=== PATIENT | male | born 1955 | race Caucasian/White ===

== ENCOUNTER 2023-06-11 17:17 | Emergency (ER) | payer OTHER, SELFPAY ==
[2023-06-11 17:22] VITALS: BP 154/84; BMI 24.4
[2023-06-11 17:49] LABS: % Basophils 0.3 % (0-2); % Immature Granulocytes 0.6 % (0-0.5); % Lymphocytes 7.9 % (20.5-51.1); % Monocytes 4.1 % (1.7-9.3); % Neutrophils 87.1 % (42.2-75.2); Absolute Immature Granulocytes 0.1 10^3/uL (0-0.05); Absolute Lymphocytes 1.2 10^3/uL (1.2-3.4); Absolute Monocytes 0.6 10^3/uL (0.1-0.6); Absolute Neutrophils 13.4 10^3/uL (1.4-6.5); Hematocrit 36.6 % (39.0-52.0); Hemoglobin 13.4 g/dL (13.0-18.0); Mean Corp Hgb Conc. 36.6 g/dL (33.0-37.0); Mean Corpuscular Hgb 30.9 pg (27.0-31.0); Mean Corpuscular Volume 84.5 fL (80.0-94.0); Nucleated Red Blood Cells % 0 % (-); Platelet Count 174 10^3/uL (130-400); Red Blood Cell Count 4.33 10^6/uL (4.70-6.10); Red Cell Dist. Width 12.1 % (11.5-14.5); White Blood Cell Count 15.4 10^3/uL (4.8-10.8)
[2023-06-11 18:05] LABS: COVID-19 Antigen Negative (Negative)
[2023-06-11 18:11] LABS: ALT (SGPT) 22 U/L (0-50); AST (SGOT) 25 U/L (17-59); Alkaline Phosphatase 98 U/L (38-126); Blood Urea Nitrogen 15 mg/dl (9-20); Calcium 9.2 mg/dl (8.4-10.2); Carbon Dioxide 24 mmol/L (22-30); Chloride 99 mmol/L (98-107); Estimated Creatinine Clearance 77 ml/min; Glucose 140 mg/dl (70-99); Lactic Acid 0.9 mmol/L (0.7-2.0); Potassium 4.1 mmol/L (3.5-5.1); Sodium 129 mmol/L (135-145); Total Bilirubin 1.5 mg/dl (0.2-1.3); Total Protein 6.7 g/dl (6.3-8.2); eGFR > 60.00
[2023-06-11 19:00] VITALS: BP 144/64
--- NOTE | 2023-06-11 19:37 | ED.GENMED ---
History of Present Illness
General
Chief Complaint: Fever
Source: patient and spouse
Exam Limitations: none
Time Seen by Provider: 06/11/23 19:00
Travel History
Have you had any contact with someone who has COVID-19?: No
Do you have any symptoms of coronavirus? Fever > 100 degrees, chills, cough, shortness of breath, sore throat, loss of taste or smell, muscle aches, or headache?: No
History of Present Illness
History of Present Illness:
Patient is a 67-year-old male who presents to the ER for evaluation. Patient reports he was burning poison aminata and cutting poison aminata down on Tuesday and then started with redness to his nose. Since then the redness has spread to his entire
face. He complains of fatigue achy and not feeling well. He also has had a cough for over 5 days and a fever for the past 2 days. He is little nauseous.
He denies any lip or tongue swelling denies any difficulty breathing.
Review of Systems
Review of Systems
Allergies reviewed?: Yes
Other source history: family
All Other Systems: ROS reviewed and negative except as documented in HPI and ROS
Constitutional: Reports fever, fatigue and chills
EENT: Reports no symptoms and other (Patient reports redness to face but no lip or tongue swelling)
Respiratory: Reports cough; Denies trouble breathing
Cardiac: Reports no symptoms
ABD/GI: Reports no symptoms
Musculoskeletal: Reports no symptoms
Skin: Reports other (redness to face )
Neurological: Reports no symptoms
Hematologic/Lymphatic: Reports no symptoms
Psychiatric: Reports no symptoms
Phy Exam
General Physical Exam
General Presentation: no apparent distress
General age: appears stated age
General Skin: warm and dry
General Habitus: normal
General Mental: alert
General Hydration: appears well hydrated
Cardiovascular Exam
Cardiovascular Exam: regular rate/rhythm, no murmur and normal peripheral pulses
Pulmonary Exam
Pulmonary Exam: lungs clear and no respiratory distress
Neurological Exam
Neurological Exam: alert and oriented x3
Musculoskeletal Exam
Musculoskeletal Exam: full ROM
Skin Exam
Skin Exam: normal color, warm/dry and other (Face is red mid swelling to eyelids )
Psychiatric Exam
Psychiatric Exam: normal mood/affect
Course
Orders/Labs/Results
Orders:
Orders
06/11/23 17:28
Electrocardiogram (*1) Urgent
Reason for Study: Other
Other Reason for Exam: Possible Sepsis
EKG- Treatment ONCE
06/11/23 17:36
Complete Blood Count/With Diff Urgent
Comprehensive Metabolic Panel Urgent
Lactic Acid Q4H
Comment: ON ICE, CANCEL 2ND ORDER IF FIRST LACTIC ACID LEVEL <2
Blood Culture Stat
YAN Source: Blood/Venous
Specimen Description:
06/11/23 17:37
COVID-19 Antigen Urgent
Source: Nasal Swab
Influenza A+B Rapid Molecular Urgent
YAN Source: Nasal Swab
Specimen Description:
06/11/23 19:37
Chest [CR Chest - 2 Views ] Urgent
Comment:
Reason For Exam: fever cough
06/11/23 19:39
Acetaminophen [Tylenol] 650 mg PO NOW STA
Dexamethasone Sod Phosphate [Decadron] 10 mg IV NOW STA
06/11/23 21:34
Azithromycin [Zithromax] 500 mg PO NOW STA
Abnormal Lab Results
06/11/23
17:36
WBC 15.4 H 10^3/uL
(4.8-10.8)
RBC 4.33 L 10^6/uL
(4.70-6.10)
Hct 36.6 L %
(39.0-52.0)
Abs Immat Gran (auto) 0.1 H 10^3/uL
(0-0.05)
Absolute Neuts (auto) 13.4 H 10^3/uL
(1.4-6.5)
Immature Gran % 0.6 H %
(0-0.5)
Neutrophils % 87.1 H %
(42.2-75.2)
Lymphocytes % 7.9 L %
(20.5-51.1)
Sodium 129 L mmol/L
(135-145)
Glucose 140 H mg/dl
(70-99)
Total Bilirubin 1.5 H mg/dl
(0.2-1.3)
06/11/23 17:36
06/11/23 17:36
Vital Signs
Initial and Last Documented VS:
Initial Vital Signs
Temp Pulse Resp BP Pulse Ox
100.7 F H 105 22 154/84 96
06/11/23 17:22 06/11/23 17:22 06/11/23 17:22 06/11/23 17:22 06/11/23 17:22
Last Documented Vital Signs
Temp Pulse Resp BP Pulse Ox
100.7 F H 105 22 142/69 96
06/11/23 17:22 06/11/23 17:22 06/11/23 17:22 06/11/23 20:00 06/11/23 19:20
MDM/Problems Addressed
Differential Diagnosis Includes:
Not limited to poison aminata exposure, pneumonitis, bronchitis, pneumonia, influenza, COVID
MDM/Problems Addressed:
67-year-old male was burning poison aminata on Tuesday and since then has had redness to his face cough mild low-grade fever. pt is non toxic not hypoxic patient presents with redness to his face minimal swelling around the eyelids. Likely obviously
from exposure to poison aminata. Patient has no lip and tongue swelling , no erythema/rash to rest of his body.
patient also has a mild cough low-grade temperature. Lungs are clear no acute distress not short of breath. no acute findings on xray however with elevated wbc of 15.4 cough and fever will start on Zithromax . Patient is nontoxic his lactic is
normal. Possible pneumonitis related to burning poison aminata
Patient has had significant decrease in redness to his face from Decadron. d/c with ED physician
will send patient home on 4 days more of prednisone as well.
Patient's sodium is mildly low at 129 will have patient follow-up with family doctor for this.
*Radiology
Radiology exam reviewed: preliminary read by ED provider
*Pulse Oximetry
Patient hypoxic: no
*EKG
Interpreted by ED Provider?: Yes
Interpretation: normal
Comparison EKG: no comparison EKG present
Heart Rate: 99
Rate: normal
Rhythm: sinus
Ischemia: no ischemia
*Critical Care Note
Total Time (30-74mins, 75-104mins- exclusive of procedures): Not Applicable
ED Attending Note
-
Portions of this chart may have been created with voice recognition software.� Occasional wrong word or��sound alike� substitutions may have occurred due to the inherent limitations of voice recognition software.
Discharge Plan
Departure
Patient Disposition: Home (Routine Discharge)
Date of Disposition: 06/11/23
Time of Disposition: 21:39
Patient with high blood pressure during this ER visit?: Yes
Condition: Fair
Covid-19: Negative COVID-19
Discharge Problem:
Cough, exposure to poison aminata
Instructions: Poison aminata, Cough, Adult (DC), BLOOD PRESSURE
Prescriptions:
New
prednisone 50 mg tablet
50 mg PO DAILY Qty: 5 0RF
azithromycin [Zithromax] 250 mg tablet
250 mg PO DAILY Qty: 4 0RF
Referrals:
Natalia Rossi PA-C [Family Provider] -
Activity Restrictions/Additional Instructions:
As discussed you were treated with steroids here in the ER and you were given a prescription for take home as well. Also a prescription for Zithromax(antibiotic) to take daily for the next 4 days. Follow-up with family doctor in the next several
days for reevaluation of your symptoms. Return if any worsening of symptoms including worsening redness difficulty breathing cough fever chills. Your sodium was also low here in the ER(129) and should be checked by your family doctor in the next
week.
Interventions
Interventions:
*Risk Screen - Suicide Last Done: 06/11/23 17:22
*General Assessment Last Done: 06/11/23 19:07
*Neglect/Abuse Screening Last Done: 06/11/23 17:22
ED- Fall Risk Assessment Last Done: 06/11/23 19:07
*ED COVID-19 Vaccine History Last Done: 06/11/23 17:22
*Nursing Disposition Last Done: 06/11/23 21:44
ED- Neurological Assessment Last Done: 06/11/23 19:07
ED-Skin Assessment Last Done: 06/11/23 19:07
Discharge Date and Time
Discharge Date/Time: 06/11/23 21:51
Print Language: SINHALA
[2023-06-11] MEDS: TYLENOL 650 MG PO (19:46)
[2023-06-11] MEDS: DECADRON 10 MG IV (19:47)
[2023-06-11 20:00] VITALS: BP 142/69
[2023-06-11] MEDS: ZITHROMAX 500 MG PO (21:38)
== END 2023-06-11 21:51 | disposition home or self-care (01) ==
LOC: EMR 17:17
PROVIDERS: Emergency Medicine; EMERGENCY PHYSICIAN Emergency Medicine; FAMILY PHYSICIAN Physician Assistant Medical
DX: L23.7 Allergic contact dermatitis due to plants, except food (principal); R05.9 Cough, unspecified; R53.83 Other fatigue; R50.9 Fever, unspecified; R11.0 Nausea; Z11.52 Encounter for screening for COVID-19; R03.0 Elevated blood-pressure reading, without diagnosis of hypertension
CPT/HCPCS: 99284; 96374; 71046; 80053; 83605; 85025; 87040; 87502; 87811; 93005

== ENCOUNTER 2024-06-06 06:17 | Day surgery (SDC) | payer OTHER, SELFPAY | END 2024-06-06 10:03 | disposition home or self-care (01) | LOC: GI 06:17 | PROVIDERS: ATTENDING PHYSICIAN Surgery | DX: Z12.11 Encounter for screening for malignant neoplasm of colon (principal); K64.9 Unspecified hemorrhoids; K63.5 Polyp of colon; Z86.0100 Personal history of colon polyps, unspecified; Z80.0 Family history of malignant neoplasm of digestive organs | CPT/HCPCS: 45380; 88305 ==